=== PATIENT | female | born 1940 ===

== ENCOUNTER → 2016-10-16 | Outpatient (CLI) | payer OTHER ==
--- NOTE | 2016-10-16 15:01 | MR ---
MRI of the Left Knee Clinical Indications: Knee pain, possible meniscal tear. Technique: Fat-suppressed, fast T2-weighted images were acquired axially, sagittally, and coronally. T1-weighted sagittal images were obtained. 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 There is moderate chondral thinning along the far posterior articular surf breonna, with subchondral cystic change and edema. The weightbearing articular surfaces of the medial com partment are intact. Medial meniscus is intact. Lateral compartment: Meniscus and articular cartilage are intact. Patellofemoral compartment: Moderate grade II chondral thinning along the medial patellar facet diffu sely. The lateral facet and trochlear sulcus are intact. Anterior and posterior cruciate ligaments are intact. Medial and lateral collateral ligaments are int act. Distal quadriceps and patellar tendons are intact. IMPRESSION: 1. 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 2. Intact ligaments. No meniscal tear identified.
== END ==
LOC: FIMAGING 13:31
PROVIDERS: ATTEND Orthopaedic Surgery
DX: M25.569 Pain in unspecified knee (principal)